=== PATIENT | female | born 1950 | race Caucasian/White ===

== ENCOUNTER 2018-03-23 11:31 | Outpatient (CLI) | payer MEDICARE ==
[2018-03-23] MEDS: ZOLEDRONIC ACID 5 MG in APPROPRIATE DILUENT 1 EA IV (12:17)
== END 2018-03-23 13:20 | disposition home or self-care (01) ==
LOC: M INFU 11:31
DX: M81.0 Age-related osteoporosis without current pathological fracture (principal)
CPT/HCPCS: J3489

== ENCOUNTER 2019-04-02 09:52 | Outpatient (CLI) | payer MEDICARE ==
[~2019-04-02] VITALS: Ht 160 cm; Wt 69.4 kg
[~2019-04-02 09:52] MED LIST: ANAS1TAB2 PO; ATOR1TAB19 PO; CALCTAB89 PO; RANI-397 PO; VITA200016 PO
[2019-04-02 09:55] VITALS: BP 133/71
[2019-04-02] MEDS ORDERED: RECL5INJ2 IV (10:27)
[2019-04-02] MEDS: ZOLEDRONIC ACID 5 MG in IV 1 EA IV ONE ×2 (10:30→11:06)
[2019-04-02 11:15] VITALS: BP 149/63
== END 2019-04-02 11:15 | disposition home or self-care (01) ==
LOC: M INFU 09:52
PROVIDERS: ATTEND Internal Medicine Endocrinology, Diabetes & Metabolism
DX: M81.0 Age-related osteoporosis without current pathological fracture (principal); Z88.2 Allergy status to sulfonamides
CPT/HCPCS: 96365; J3489

== ENCOUNTER 2020-04-03 11:23 | Outpatient (CLI) | payer MEDICARE ==
[~2020-04-03] VITALS: Ht 160 cm; Wt 69.5 kg
[~2020-04-03 11:23] MED LIST changes: +RECL5INJ2 IV
[2020-04-03 11:30] VITALS: BP 151/70
[2020-04-03] MEDS ORDERED: ZOLEDRONIC ACID 5 MG in IV 1 EA IV ONE (11:30)
[2020-04-03 12:30] VITALS: BP 141/66
[2020-04-03] MEDS ORDERED: EPIP0.3I2 IM (14:42)
== END 2020-04-03 12:30 | disposition home or self-care (01) ==
LOC: M INFU 11:23
PROVIDERS: ATTEND Internal Medicine Endocrinology, Diabetes & Metabolism
DX: M81.0 Age-related osteoporosis without current pathological fracture (principal); Z88.2 Allergy status to sulfonamides
CPT/HCPCS: 96365; J3489

== ENCOUNTER 2021-04-04 13:42 | Outpatient (CLI) | payer MEDICARE ==
[~2021-04-04] VITALS: Ht 160 cm; Wt 71.3 kg
[~2021-04-04 13:42] MED LIST changes: +EPIP0.3I2 IM
[2021-04-04 13:45] VITALS: BP 140/66
[2021-04-04] MEDS ORDERED: ZOLEDRONIC ACID 5 MG in IV 1 EA IV ONE (14:00)
[2021-04-04 14:41] VITALS: BP 126/70
== END 2021-04-04 14:40 | disposition home or self-care (01) ==
LOC: M INFU 13:42
PROVIDERS: ATTEND Internal Medicine Endocrinology, Diabetes & Metabolism
DX: M81.0 Age-related osteoporosis without current pathological fracture (principal); Z88.2 Allergy status to sulfonamides
CPT/HCPCS: 96365; J3489

== ENCOUNTER → 2024-03-09 | Outpatient (CLI) | payer MEDICARE | LOC: M SLEEP 20:00 | PROVIDERS: ATTEND Physician Assistant | DX: G47.33 Obstructive sleep apnea (adult) (pediatric) (principal) ==

== ENCOUNTER → 2024-03-31 | Outpatient (CLI) | payer MEDICARE | LOC: M SLEEP 20:00 | PROVIDERS: ATTEND Physician Assistant | DX: G47.33 Obstructive sleep apnea (adult) (pediatric) (principal) ==